=== PATIENT | female | born 1965 | race Caucasian/White ===

== ENCOUNTER 2018-02-07 14:32 | Inpatient (IN) | payer OTHER, BC ==
[~2018-02-07] VITALS: Ht 165.1 cm; Wt 101.9 kg
[~2018-02-07 14:32] MED LIST: ATORVASTATIN CA40 MG PO; CLARITIN-D 121 EACH PO; FLUOXETINE HCL40 MG PO; HYDROCODON-ACE1 EAC9 PO; LEVOTHYROXINE25 MCG PO; METFORMIN HCL500 M1 PO; PHENTERMINE HCL30 MG PO
[2018-02-08] MEDS ORDERED: CIPRO750 MG PO (10:45)
[2018-02-08] MEDS ORDERED: HYDROCODON-ACE1 EAC9 PO (10:45)
[2018-02-08] MEDS ORDERED: IBU600 MG PO (10:45)
[2018-02-08] MEDS ORDERED: CYCLOBENZAPRINE10 MG PO (10:45)
[2018-02-08 16:09] VITALS: BP 90/59
[2018-02-09 00:10] VITALS: BP 112/60
[2018-02-09 04:52] VITALS: BP 120/70
[2018-02-09 06:05] LABS: HEMOGLOBIN 7.7 G/DL (11.9-15.5); MCH 28.8 PG (29.0-34.0); MCHC 30.8 G/DL (30.0-36.0); MCV 93.6 FL (83-99); NRBC (%) 0.4 /100 WBC (0-0); RBC DIS.WIDTH-CV 18.4 % (11.8-14.6); RBC DIS.WIDTH-SD 58.9 % (39-53); RED BLOOD COUNT 2.67 M/uL (3.80-5.20)
[2018-02-09 06:08] LABS: PLATELET COUNT 249 K/uL (156-360)
[2018-02-09 06:47] LABS: ALBUMIN 2.8 G/DL (3.2-4.8); ALKALINE PHOSPHATASE 87 IU/L (3-129); ALT (GPT) 22 IU/L (3-49); AST (GOT) 25 IU/L (2-34); CHLORIDE 105 MEQ/L (99-109); CREATININE 0.9 MG/DL (0.6-1.3); GFR ESTIMATE (CALCULATED) > 59 mL/min/; GLUCOSE 97 mg/dL (70-99); SODIUM 141 MEQ/L (136-147); TOTAL BILIRUBIN 0.7 MG/DL (0.0-1.0); TOTAL PROTEIN 4.9 G/DL (6.4-8.3); UREA NITROGEN (BUN) 15 mg/dL (9-23)
[2018-02-09 15:26] VITALS: BP 100/54
[2018-02-10 05:13] VITALS: BP 116/59
[2018-02-10 11:08] LABS: HEMATOCRIT 28.1 % (36.0-46.0); HEMOGLOBIN 8.6 G/DL (11.9-15.5); MCHC 30.6 G/DL (30.0-36.0); MCV 94.6 FL (83-99); PLATELET COUNT 280 K/uL (156-360); RBC DIS.WIDTH-CV 18.9 % (11.8-14.6); RBC DIS.WIDTH-SD 60.1 % (39-53); RED BLOOD COUNT 2.97 M/uL (3.80-5.20); WHITE BLOOD COUNT 7.1 K/uL (4.1-10.2)
[2018-02-10 15:48] VITALS: BP 104/55
[2018-02-11 04:56] VITALS: BP 119/59
[2018-02-11 10:14] LABS: INTER. NORMALIZED RATIO 1.2
[2018-02-11 10:16] LABS: PTT 29.8 SEC (25-37)
[2018-02-11 16:00] VITALS: BP 127/66
[2018-02-12 04:20] VITALS: BP 129/66
[2018-02-13 05:01] VITALS: BP 138/78
[2018-02-13 15:18] VITALS: BP 108/60
[2018-02-14 05:16] VITALS: BP 104/59
[2018-02-14 07:08] LABS: BASOPHIL (%) 0.6 % (0-1); EOSINOPHIL (%) 3.5 % (0-5); EOSINOPHIL COUNT 0.2 K/uL (0-0.3); HEMATOCRIT 30.6 % (36.0-46.0); HEMOGLOBIN 9.5 G/DL (11.9-15.5); IMMATURE GRANULOCYTE (%) 0.6 % (0.0-0.7); LYMPHOCYTE (%) 20.7 % (15-42); LYMPHOCYTE COUNT 1.3 K/uL (1.0-2.8); MCH 29.2 PG (29.0-34.0); MCV 94.2 FL (83-99); MONOCYTE (%) 7.3 % (3-12); MONOCYTE COUNT 0.5 K/uL (0-0.8); NEUTROPHIL (%) 67.3 % (45-76); NEUTROPHIL COUNT 4.4 K/uL (1.8-6.4); PLATELET COUNT 339 K/uL (156-360); RBC DIS.WIDTH-CV 18.9 % (11.8-14.6); RBC DIS.WIDTH-SD 64.5 % (39-53); RED BLOOD COUNT 3.25 M/uL (3.80-5.20); WHITE BLOOD COUNT 6.5 K/uL (4.1-10.2)
[2018-02-14 07:30] LABS: CHLORIDE 102 MEQ/L (99-109); CREATININE 0.9 MG/DL (0.6-1.3); GFR ESTIMATE (CALCULATED) > 59 mL/min/; GLUCOSE 98 mg/dL (70-99); POTASSIUM 4.4 MEQ/L (3.7-5.4); SODIUM 138 MEQ/L (136-147); UREA NITROGEN (BUN) 15 mg/dL (9-23)
[2018-02-14] MEDS ORDERED: MIRALAX17 GM PO ×2 (11:06→11:12)
[2018-02-14] MEDS ORDERED: NEURONTIN300 MG PO (11:06)
[2018-02-14] MEDS ORDERED: FEOSOL325 MG PO (11:07)
[2018-02-14] MEDS ORDERED: ASCORBIC ACID500 M3 PO (11:07)
[2018-02-14] MEDS ORDERED: FOLIC ACID1 MG PO (11:08)
[2018-02-14] MEDS ORDERED: SENOKOT,SENN1 TABLET PO (11:08)
[2018-02-14] MEDS ORDERED: THERAGRAN1 TABLET PO (11:09)
[2018-02-14] MEDS ORDERED: PAMELOR10 MG PO (11:10)
[2018-02-14] MEDS ORDERED: SKELAXIN800 MG PO (11:12)
[2018-02-14] MEDS ORDERED: DULCOLAX10 MG PR (11:13)
[2018-02-14] MEDS ORDERED: LOVENOX40 MG/0.4 SC (11:14)
[2018-02-14] MEDS ORDERED: ZOFRAN4 MG PO (11:15)
[2018-02-14 15:50] VITALS: BP 107/67
[2018-02-15 05:10] VITALS: BP 105/59
[2018-02-15 15:34] VITALS: BP 108/67
[2018-02-16 06:46] VITALS: BP 116/68
[2018-02-16 14:19] VITALS: BP 122/70
[2018-02-17 04:53] VITALS: BP 122/60
[2018-02-17 16:37] VITALS: BP 112/69
[2018-02-18 05:41] VITALS: BP 115/56
[2018-02-18 15:25] VITALS: BP 113/72
[2018-02-19 05:07] VITALS: BP 125/66
[2018-02-19 16:00] VITALS: BP 111/66
[2018-02-19 16:45] LABS: HEMATOCRIT 33.9 % (36.0-46.0); HEMOGLOBIN 10.5 G/DL (11.9-15.5); MCH 29.6 PG (29.0-34.0); MCV 95.5 FL (83-99); PLATELET COUNT 276 K/uL (156-360); RED BLOOD COUNT 3.55 M/uL (3.80-5.20); WHITE BLOOD COUNT 6.5 K/uL (4.1-10.2)
[2018-02-19 17:09] LABS: ALBUMIN 3.5 G/DL (3.2-4.8); ALKALINE PHOSPHATASE 77 IU/L (3-129); ALT (GPT) 30 IU/L (3-49); AST (GOT) 30 IU/L (2-34); CHLORIDE 103 MEQ/L (99-109); GFR ESTIMATE (CALCULATED) > 59 mL/min/; GLUCOSE 96 mg/dL (70-99); SODIUM 140 MEQ/L (136-147); TOTAL BILIRUBIN 0.4 MG/DL (0.0-1.0); UREA NITROGEN (BUN) 13 mg/dL (9-23)
[2018-02-20 05:25] VITALS: BP 115/71
[2018-02-20] MEDS ORDERED: ELIQUIS2.5 MG PO (12:54)
[2018-02-20] MEDS ORDERED: NEURONTIN300 MG PO (12:54)
[2018-02-20] MEDS ORDERED: FOLIC ACID1 MG PO (12:54)
[2018-02-20] MEDS ORDERED: SANTYL30 GM TP (12:54)
[2018-02-20] MEDS ORDERED: FEOSOL325 MG PO (12:54)
[2018-02-20] MEDS ORDERED: SSD25GM TP (12:54)
[2018-02-27] MEDS ORDERED: VITAMIN D-3 401 EACH PO (14:32)
[2018-02-27] MEDS ORDERED: ROXICODONE5 MG PO (14:34)
== END 2018-02-20 15:30 | disposition home health service (06) | DRG 560 ==
LOC: 3WEST 14:32 → EDPENDDISTM 02-20 → EDPENDDISDT 02-20 → 3WEST 02-20 15:30
PROVIDERS: Family Medicine; Physical Medicine & Rehabilitation Pain Medicine; Psychiatry & Neurology Neurology
DX: S82.452D Displaced comminuted fracture of shaft of left fibula, subsequent encounter for closed fracture with routine healing (principal); D62 Acute posthemorrhagic anemia; F33.9 Major depressive disorder, recurrent, unspecified; V27 Motorcycle rider injured in collision with fixed or stationary object; E03.9 Hypothyroidism, unspecified; E78.00 Pure hypercholesterolemia, unspecified; E83.51 Hypocalcemia; F41.9 Anxiety disorder, unspecified; G47.30 Sleep apnea, unspecified; G89.29 Other chronic pain; I10 Essential (primary) hypertension; J30.2 Other seasonal allergic rhinitis; K22.70 Barrett's esophagus without dysplasia; S62.211D Bennett's fracture, right hand, subsequent encounter for fracture with routine healing; K42.9 Umbilical hernia without obstruction or gangrene; M25.462 Effusion, left knee; M54.2 Cervicalgia; R53.1 Weakness; G89.11 Acute pain due to trauma; S71.12 Laceration with foreign body of thigh; S81.812D Laceration without foreign body, left lower leg, subsequent encounter; E66.9 Obesity, unspecified; Z68.37 Body mass index [BMI] 37.0-37.9, adult; S70.11XD Contusion of right thigh, subsequent encounter; S82.54XD Nondisplaced fracture of medial malleolus of right tibia, subsequent encounter for closed fracture with routine healing; Z98.1 Arthrodesis status; Z87.891 Personal history of nicotine dependence; Z90.710 Acquired absence of both cervix and uterus; Z80.3 Family history of malignant neoplasm of breast; Z82.49 Family history of ischemic heart disease and other diseases of the circulatory system
CPT/HCPCS: 10030; 73130; 73552; 73560; 73590; 73610; 80048; 80053; 82948; 85025; 85027; 85610; 85730; 87070; 87075; 87205; 93971; 97110 GO; 97530 GP; A6260; C1729; C1769; J1170; J1650; J3010; S0020

== ENCOUNTER → 2018-02-14 | Day surgery (SDC) | payer OTHER, BC ==
[~2018-02-14] VITALS: Ht 165.1 cm; Wt 91.0 kg
[~2018-02-14] MED LIST changes: +ASCORBIC ACID500 M3 PO; +CIPRO750 MG PO; +CYCLOBENZAPRINE10 MG PO; +DULCOLAX10 MG PR; +ELIQUIS2.5 MG PO; +FEOSOL325 MG PO; +FOLIC ACID1 MG PO; +IBU600 MG PO; +LOVENOX40 MG/0.4 SC; +MIRALAX17 GM PO; +NEURONTIN300 MG PO; +PAMELOR10 MG PO; +SANTYL30 GM TP; +SENOKOT,SENN1 TABLET PO; +SKELAXIN800 MG PO; +SSD25GM TP; +THERAGRAN1 TABLET PO; +ZOFRAN4 MG PO
[2018-02-14 10:18] VITALS: BP 91/52
== END | disposition home or self-care (01) ==
LOC: SDC 10:07
PROC: 0PSP04Z Reposition Right Metacarpal with Internal Fixation Device, Open Approach (ICD-10-PCS; principal; 2018-02-14)
DX: S62.231A Other displaced fracture of base of first metacarpal bone, right hand, initial encounter for closed fracture (principal)
CPT/HCPCS: 73140; 76000; C1769; J0131; J1100; J1170; J2250; J2405

== ENCOUNTER 2018-02-25 18:18 | Emergency (ER) | payer BC ==
[~2018-02-25] VITALS: Ht 165.1 cm; Wt 95.3 kg
[2018-02-25 20:04] LABS: BASOPHIL (%) 0.1 % (0-1); EOSINOPHIL (%) 5.5 % (0-5); EOSINOPHIL COUNT 0.4 K/uL (0-0.3); HEMATOCRIT 36.7 % (36.0-46.0); HEMOGLOBIN 12.1 G/DL (11.9-15.5); IMMATURE GRANULOCYTE (%) 0.3 % (0.0-0.7); LYMPHOCYTE (%) 25.4 % (15-42); LYMPHOCYTE COUNT 1.8 K/uL (1.0-2.8); MCH 30.9 PG (29.0-34.0); MCV 93.6 FL (83-99); MONOCYTE COUNT 0.6 K/uL (0-0.8); NEUTROPHIL (%) 60.7 % (45-76); NEUTROPHIL COUNT 4.3 K/uL (1.8-6.4); PLATELET COUNT 208 K/uL (156-360); RBC DIS.WIDTH-CV 16.6 % (11.8-14.6); RED BLOOD COUNT 3.92 M/uL (3.80-5.20)
[2018-02-25 20:10] LABS: ALBUMIN 3.9 g/dL (3.2-4.8); CHLORIDE 102 mEq/L (99-109); POTASSIUM 4.2 mEq/L (3.7-5.4); SODIUM 140 mEq/L (136-147)
[2018-02-25 20:12] LABS: GLUCOSE 89 mg/dL (70-99)
[2018-02-25 20:13] LABS: TOTAL PROTEIN 6.6 g/dL (6.4-8.3)
[2018-02-25 20:14] LABS: TOTAL BILIRUBIN 0.3 mg/dL (0.0-1.0)
[2018-02-25 20:16] LABS: ALKALINE PHOSPHATASE 91 IU/L (3-129); CREATININE 0.9 mg/dL (0.6-1.3); GFR ESTIMATE (CALCULATED) > 59 mL/min/
[2018-02-25 20:17] LABS: UREA NITROGEN (BUN) 14 mg/dL (9-23)
[2018-02-25 20:18] LABS: AST (GOT) 18 IU/L (2-34)
[2018-02-25 20:19] LABS: ALT (GPT) 23 IU/L (3-49)
[2018-02-26 00:40] VITALS: BP 144/91
[2018-02-27] MEDS ORDERED: VITAMIN D-3 401 EACH PO (14:32)
[2018-02-27] MEDS ORDERED: ROXICODONE5 MG PO (14:34)
== END 2018-02-26 00:41 | disposition home or self-care (01) ==
LOC: EME 18:18
PROVIDERS: Emergency Medicine
DX: T79.2XXA Traumatic secondary and recurrent hemorrhage and seroma, initial encounter (principal); M79.7 Fibromyalgia; G43.909 Migraine, unspecified, not intractable, without status migrainosus; F41.9 Anxiety disorder, unspecified; F32.9 Major depressive disorder, single episode, unspecified; Z87.81 Personal history of (healed) traumatic fracture; Z87.891 Personal history of nicotine dependence
CPT/HCPCS: 73701; 80053; 85025; 93971; 99281; 99285; J3010

== ENCOUNTER → 2018-02-27 | Outpatient (CLI) | payer BC ==
[~2018-02-27] MED LIST changes: +ROXICODONE5 MG PO; +VITAMIN D-3 401 EACH PO
== END | disposition home or self-care (01) ==
LOC: EDSTATUS 13:00 → OPR 13:00
PROC: 0J9L30Z Drainage of Right Upper Leg Subcutaneous Tissue and Fascia with Drainage Device, Percutaneous Approach (ICD-10-PCS; principal; 2018-02-27)
DX: S70.11XA Contusion of right thigh, initial encounter (principal); X58.XXXA Exposure to other specified factors, initial encounter
CPT/HCPCS: 10030; C1729; C1769; J3010

== ENCOUNTER → 2018-03-09 | Outpatient (CLI) | payer OTHER, BC | END | disposition home or self-care (01) | LOC: RAD 15:00 | PROC: 0YP Anatomical Regions, Lower Extremities, Removal (ICD-10-PCS; principal; 2018-03-09) | DX: S71.111A Laceration without foreign body, right thigh, initial encounter (principal) | CPT/HCPCS: 73700 ==

== ENCOUNTER → 2018-03-13 | Outpatient (CLI) | payer OTHER, BC | END | disposition home or self-care (01) | LOC: RAD 14:00 | DX: S71.111A Laceration without foreign body, right thigh, initial encounter (principal); V29.9XXA Motorcycle rider (driver) (passenger) injured in unspecified traffic accident, initial encounter | CPT/HCPCS: 76882 ==

== ENCOUNTER → 2018-03-21 | Outpatient (CLI) | payer BC | END | disposition home or self-care (01) | LOC: OPR 10:00 → EDSTATUS 10:00 → OPR 10:22 | PROVIDERS: Physician Assistant | PROC: 0J9L30Z Drainage of Right Upper Leg Subcutaneous Tissue and Fascia with Drainage Device, Percutaneous Approach (ICD-10-PCS; principal; 2018-03-21) | DX: S70.11XA Contusion of right thigh, initial encounter (principal); X58.XXXA Exposure to other specified factors, initial encounter; Y93.9 Activity, unspecified; Y92.9 Unspecified place or not applicable; Y99.9 Unspecified external cause status; Z87.891 Personal history of nicotine dependence | CPT/HCPCS: 10030; 82948; C1729; C1769; J3010 ==

== ENCOUNTER → 2018-03-22 | Outpatient (CLI) | payer BC ==
[~2018-03-22] MED LIST changes: +GLUCOSAMINE CH1 EAC7 PO; +HAIR, SKIN AND1 EACH PO; +PROTONIX40 MG PO; +TIZANIDINE HCL4 M1 PO
== END | disposition home or self-care (01) ==
LOC: RAD 16:19
DX: R60.0 Localized edema (principal); T85.628A Displacement of other specified internal prosthetic devices, implants and grafts, initial encounter; S71.111A Laceration without foreign body, right thigh, initial encounter; V29.9XXA Motorcycle rider (driver) (passenger) injured in unspecified traffic accident, initial encounter
CPT/HCPCS: 10030

== ENCOUNTER → 2018-03-28 | Outpatient (CLI) | payer BC ==
[2018-03-28 12:13] LABS: HEMATOCRIT 37.6 % (36.0-46.0); HEMOGLOBIN 12.6 G/DL (11.9-15.5); MCH 30.1 PG (29.0-34.0); MCHC 33.5 G/DL (30.0-36.0); PLATELET COUNT 167 K/uL (156-360); RED BLOOD COUNT 4.18 M/uL (3.80-5.20); WHITE BLOOD COUNT 7.2 K/uL (4.1-10.2)
[2018-03-28 12:25] LABS: INTER. NORMALIZED RATIO 1.1
[2018-03-28 12:28] LABS: PTT 31.3 SEC (25-37)
== END | disposition home or self-care (01) ==
LOC: OPR 11:35 → EDSTATUS 12:00
PROVIDERS: Physician Assistant
PROC: 0J9L30Z Drainage of Right Upper Leg Subcutaneous Tissue and Fascia with Drainage Device, Percutaneous Approach (ICD-10-PCS; principal; 2018-03-28)
DX: S70.11XA Contusion of right thigh, initial encounter (principal); V29.9XXA Motorcycle rider (driver) (passenger) injured in unspecified traffic accident, initial encounter
CPT/HCPCS: 10030; 85027; 85610; 85730; C1729; C1769; J3010

== ENCOUNTER → 2018-04-04 | Outpatient (CLI) | payer BC ==
[~2018-04-04] MED LIST changes: +GLUCOPHAGE500 MG PO; +IODOFLEX1 EACH TP
== END | disposition home or self-care (01) ==
LOC: RAD 10:53 → EDSTATUS 11:00
PROC: 0J9L3ZX Drainage of Right Upper Leg Subcutaneous Tissue and Fascia, Percutaneous Approach, Diagnostic (ICD-10-PCS; principal; 2018-04-04)
DX: S71.111A Laceration without foreign body, right thigh, initial encounter (principal); V29.9XXA Motorcycle rider (driver) (passenger) injured in unspecified traffic accident, initial encounter
CPT/HCPCS: 75989

== ENCOUNTER 2018-04-11 10:26 | Day surgery (SDC) | payer BC ==
[~2018-04-11] VITALS: Ht 165.1 cm; Wt 90.7 kg
[2018-04-11 11:23] VITALS: BP 141/87
[2018-04-11 14:34] VITALS: BP 167/97
[2018-04-11 15:20] VITALS: BP 126/62
== END 2018-04-11 15:24 | disposition home or self-care (01) ==
LOC: SDC 10:26
PROVIDERS: Surgery
PROC: 0J9L0ZZ Drainage of Right Upper Leg Subcutaneous Tissue and Fascia, Open Approach (ICD-10-PCS; principal; 2018-04-11)
DX: S70.11XA Contusion of right thigh, initial encounter (principal); E78.5 Hyperlipidemia, unspecified; E03.9 Hypothyroidism, unspecified; Z79.84 Long term (current) use of oral hypoglycemic drugs; Z87.891 Personal history of nicotine dependence; V29.9XXA Motorcycle rider (driver) (passenger) injured in unspecified traffic accident, initial encounter
CPT/HCPCS: 82948; 87070; 87075; 87205; J0690; J1170; J2250; J3010; S0020

== ENCOUNTER 2018-04-18 17:24 | Inpatient (IN) | payer BC ==
[~2018-04-18] VITALS: Ht 165.1 cm; Wt 95.8 kg
[2018-04-18 17:55] LABS: BASOPHIL (%) 0.3 % (0-1); EOSINOPHIL (%) 1.4 % (0-5); EOSINOPHIL COUNT 0.2 K/uL (0-0.3); HEMATOCRIT 40.6 % (36.0-46.0); HEMOGLOBIN 13.5 G/DL (11.9-15.5); IMMATURE GRANULOCYTE (%) 0.5 % (0.0-0.7); LYMPHOCYTE (%) 10.6 % (15-42); LYMPHOCYTE COUNT 1.2 K/uL (1.0-2.8); MCH 29.9 PG (29.0-34.0); MCHC 33.3 G/DL (30.0-36.0); MCV 89.8 FL (83-99); MONOCYTE (%) 7.7 % (3-12); MONOCYTE COUNT 0.9 K/uL (0-0.8); NEUTROPHIL (%) 79.5 % (45-76); NEUTROPHIL COUNT 9.3 K/uL (1.8-6.4); PLATELET COUNT 166 K/uL (156-360); RBC DIS.WIDTH-CV 13.2 % (11.8-14.6); RBC DIS.WIDTH-SD 42.9 % (39-53); RED BLOOD COUNT 4.52 M/uL (3.80-5.20); WHITE BLOOD COUNT 11.6 K/uL (4.1-10.2)
[2018-04-18 18:11] LABS: CHLORIDE 102 mEq/L (99-109); POTASSIUM 4.2 mEq/L (3.7-5.4); SODIUM 139 mEq/L (136-147)
[2018-04-18 18:13] LABS: GLUCOSE 97 mg/dL (70-99)
[2018-04-18 18:17] LABS: GFR ESTIMATE (CALCULATED) > 59 mL/min/
[2018-04-18 18:18] LABS: UREA NITROGEN (BUN) 17 mg/dL (9-23)
[2018-04-18 18:32] LABS: APPEARANCE CLEAR ((CLEAR)); BILIRUBIN NEGATIVE; BLOOD SMALL; COLOR YELLOW ((YELLOW)); GLUCOSE (STRIP) NEGATIVE; KETONES NEGATIVE; LEUKOCYTES NEGATIVE; NITRITE NEGATIVE; PROTEIN (STRIP) 30
[2018-04-18 18:38] LABS: BACTERIA NONE SEEN /HPF; EPITHELIAL CELLS 2+ /HPF; MUCUS 2+ /LPF; RED BLOOD CELLS 0-5 /HPF (0-5); UCUL ADDED? NO; WHITE BLOOD CELLS 0-5 /HPF (0-5)
[2018-04-18] MEDS ORDERED: FERROUS SULFAT325 MG PO (23:50)
[2018-04-18] MEDS ORDERED: OXYCODONE-APAP1 EACH PO (23:50)
[2018-04-19 00:41] VITALS: BP 110/59
[2018-04-19 03:44] VITALS: BP 121/56
[2018-04-19 08:34] VITALS: BP 106/61
[2018-04-19 12:45] LABS: HEMATOCRIT 37.9 % (36.0-46.0); HEMOGLOBIN 12.4 G/DL (11.9-15.5); MCH 29.5 PG (29.0-34.0); MCHC 32.7 G/DL (30.0-36.0); MCV 90.2 FL (83-99); NRBC (%) 0.2 /100 WBC (0-0); PLATELET COUNT 152 K/uL (156-360); RBC DIS.WIDTH-CV 13.5 % (11.8-14.6); RBC DIS.WIDTH-SD 44.5 % (39-53); WHITE BLOOD COUNT 9.4 K/uL (4.1-10.2)
[2018-04-19 15:56] VITALS: BP 106/63
[2018-04-19 19:17] VITALS: BP 110/65
[2018-04-20] VITALS: BP 118/57
[2018-04-20 00:05] VITALS: BP 109/59
[2018-04-20 04:00] VITALS: BP 129/60
[2018-04-20 07:57] VITALS: BP 110/59
[2018-04-20 16:05] VITALS: BP 112/63
[2018-04-20 23:15] VITALS: BP 118/57
[2018-04-21 08:07] LABS: HEMATOCRIT 34.8 % (36.0-46.0); HEMOGLOBIN 11.5 G/DL (11.9-15.5); MCH 29.9 PG (29.0-34.0); MCV 90.4 FL (83-99); PLATELET COUNT 143 K/uL (156-360); RBC DIS.WIDTH-CV 13.1 % (11.8-14.6); RBC DIS.WIDTH-SD 43.2 % (39-53); RED BLOOD COUNT 3.85 M/uL (3.80-5.20); WHITE BLOOD COUNT 7.7 K/uL (4.1-10.2)
[2018-04-21 08:18] LABS: CHLORIDE 105 mEq/L (99-109); POTASSIUM 4.4 mEq/L (3.7-5.4); SODIUM 140 mEq/L (136-147)
[2018-04-21 08:20] LABS: GLUCOSE 124 mg/dL (70-99)
[2018-04-21 08:24] LABS: CREATININE 0.8 mg/dL (0.6-1.3); GFR ESTIMATE (CALCULATED) > 59 mL/min/
[2018-04-21 08:25] LABS: UREA NITROGEN (BUN) 9 mg/dL (9-23)
[2018-04-21 08:37] VITALS: BP 120/69
[2018-04-21] MEDS ORDERED: AUGMENTIN875 MG PO (14:53)
[2018-04-21 15:51] VITALS: BP 115/63
[2018-04-21 19:58] VITALS: BP 123/68
[2018-04-22 00:31] VITALS: BP 117/60
[2018-04-22 03:51] VITALS: BP 124/64
[2018-04-22 06:58] LABS: BASOPHIL (%) 0.1 % (0-1); EOSINOPHIL (%) 2.6 % (0-5); EOSINOPHIL COUNT 0.2 K/uL (0-0.3); HEMATOCRIT 32.2 % (36.0-46.0); HEMOGLOBIN 10.3 G/DL (11.9-15.5); IMMATURE GRANULOCYTE (%) 0.3 % (0.0-0.7); LYMPHOCYTE (%) 10.9 % (15-42); LYMPHOCYTE COUNT 0.8 K/uL (1.0-2.8); MCH 29.3 PG (29.0-34.0); MCV 91.5 FL (83-99); MONOCYTE (%) 11.5 % (3-12); MONOCYTE COUNT 0.8 K/uL (0-0.8); NEUTROPHIL (%) 74.6 % (45-76); NEUTROPHIL COUNT 5.1 K/uL (1.8-6.4); PLATELET COUNT 145 K/uL (156-360); RBC DIS.WIDTH-CV 13.2 % (11.8-14.6); RBC DIS.WIDTH-SD 43.9 % (39-53); RED BLOOD COUNT 3.52 M/uL (3.80-5.20); WHITE BLOOD COUNT 6.9 K/uL (4.1-10.2)
[2018-04-22 07:05] VITALS: BP 94/55
== END 2018-04-22 11:42 | disposition home or self-care (01) | DRG 909 ==
LOC: EME 17:24 → 2EAST 23:55 → EDOF 23:55 → 2EAST 04-19 00:32
PROVIDERS: Physician Assistant Medical; Physician Assistant Surgical; Surgery
DX: T79.2XXA Traumatic secondary and recurrent hemorrhage and seroma, initial encounter (principal); V29.9XXA Motorcycle rider (driver) (passenger) injured in unspecified traffic accident, initial encounter; G43.909 Migraine, unspecified, not intractable, without status migrainosus; M79.7 Fibromyalgia; E03.9 Hypothyroidism, unspecified; F41.9 Anxiety disorder, unspecified; F32.9 Major depressive disorder, single episode, unspecified; E78.5 Hyperlipidemia, unspecified; G47.30 Sleep apnea, unspecified; E78.00 Pure hypercholesterolemia, unspecified; G89.29 Other chronic pain; M54.2 Cervicalgia; Z87.891 Personal history of nicotine dependence; Z98.1 Arthrodesis status
CPT/HCPCS: 71046; 73701; 80048; 81003; 83605; 85025; 85027; 87040; 97597; 97605; 99281; 99285; J0330; J0690; J1170; J1650; J1885; J2250; J2270; J2405; J3010; J3370; J7030; J7120